=== PATIENT | male | born 1980 | race Hispanic/Latino ===

== ENCOUNTER 2020-12-26 12:07 | Inpatient (IN) | payer SELFPAY ==
[~2020-12-26] VITALS: Ht 188 cm; Wt 98.9 kg
[2020-12-26 14:12] LABS: BASOPHILS # (AUTO) 0.1 (0.0-0.1); BASOPHILS % 0.7 % (0.0-1.0); EOSINOPHILS # (AUTO) 0.4 (0.0-0.4); EOSINOPHILS % 4.5 % (0.0-6.0); HEMATOCRIT 37.1 % (38.2-49.6); LYMPHOCYTES # (AUTO) 1.6 (1.0-3.2); LYMPHOCYTES % 20.1 % (18.0-39.1); MEAN CORPUSCULAR HEMOGLOBIN 21.1 pg (28-32); MEAN CORPUSCULAR HGB CONC 29.6 g/dL (31-35); MEAN CORPUSCULAR VOLUME 71.1 fL (81-99); MONOCYTES # (AUTO) 0.6 (0.2-0.8); MONOCYTES % 7.6 % (4.4-11.3); NEUTROPHILS # (AUTO) 5.4 (2.1-6.9); NEUTROPHILS % 66.9 % (38.7-80.0); PLATELET COUNT 282 x10e3/uL (140-360); RED BLOOD COUNT 5.22 x10e6/uL (4.3-5.7); RED CELL DISTRIBUTION WIDTH 18.6 % (11.7-14.4)
[2020-12-26 14:26] LABS: ALBUMIN 4.2 g/dL (3.5-5.0); ALBUMIN/GLOBULIN RATIO 1.3 (0.8-2.0); ANION GAP 12.7 mmol/L (8-16); CALCIUM 8.8 mg/dL (8.4-10.2); CREATININE, SERUM 1.04 mg/dL (0.72-1.25); POTASSIUM 3.7 mmol/L (3.5-5.1)
[2020-12-26] MEDS ORDERED: MORPHINE SULFATE INJ 4 MG/ML INJ 1ML IV ONE (14:30)
[2020-12-26] MEDS ORDERED: HYDROMORPHONE 1MG/1ML INJ IV STA (14:45)
[2020-12-26] MEDS ORDERED: SODIUM CHLORIDE 0.9% 50ML 50 ML ONE (14:46)
[2020-12-26] MEDS ORDERED: IOPAMIDOL 370 MG/ML 200 ML INFUS..BTL INJ ONE (14:46)
[2020-12-26] MEDS: SODIUM CHLORIDE 0.9% 1000ML 1,000 ML IV SCH (17:43)
[2020-12-26] MEDS: MORPHINE SULFATE INJ 4 MG/ML INJ 1ML IV PRN ×2 (17:44→21:59)
[2020-12-26] MEDS: ONDANSETRON HCL INJ 2MG/ML 2ML 2 MG/ML VIAL IV PRN ×2 (17:44→21:59)
[2020-12-26 20:00] VITALS: BP 145/102
[2020-12-27] VITALS (7 sets, daily range): BP systolic 114–158; BP diastolic 75–112
[2020-12-27] MEDS ORDERED: HALOPERIDOL LACTATE 5 MG/ML VIAL IM PRN (01:00)
[2020-12-27] MEDS: SODIUM CHLORIDE 0.9% 1000ML 1,000 ML IV SCH ×3 (01:30→16:37)
[2020-12-27 05:35] LABS: BASOPHILS # (AUTO) 0.1 (0.0-0.1); EOSINOPHILS # (AUTO) 0.5 (0.0-0.4); EOSINOPHILS % 5.8 % (0.0-6.0); HEMATOCRIT 35.6 % (38.2-49.6); HEMOGLOBIN 10.7 g/dL (14.0-18.0); LYMPHOCYTES # (AUTO) 2.4 (1.0-3.2); LYMPHOCYTES % 29.4 % (18.0-39.1); MEAN CORPUSCULAR HEMOGLOBIN 21.4 pg (28-32); MEAN CORPUSCULAR HGB CONC 30.1 g/dL (31-35); MEAN CORPUSCULAR VOLUME 71.2 fL (81-99); MONOCYTES # (AUTO) 0.6 (0.2-0.8); MONOCYTES % 7.6 % (4.4-11.3); NEUTROPHILS # (AUTO) 4.6 (2.1-6.9); PLATELET COUNT 273 x10e3/uL (140-360)
[2020-12-27 06:02] LABS: ANION GAP 12.7 mmol/L (8-16); CALCIUM 8.2 mg/dL (8.4-10.2); CREATININE, SERUM 1.04 mg/dL (0.72-1.25); POTASSIUM 3.7 mmol/L (3.5-5.1)
[2020-12-27] MEDS ORDERED: BUPIVACAINE HCL 0.5% INJ 30 ML VIAL INJ ONE (06:08)
[2020-12-27] MEDS ORDERED: LIDOCAINE 2% /EPINEPHRINE 20 ML SDV INJ ONE (06:08)
[2020-12-27] MEDS ORDERED: LIDOCAINE JELLY 2% 10ML URO-JET ONE (06:08)
[2020-12-27] MEDS ORDERED: LIDOCAINE HCL 2% JELLY 5 ML TUBE ONE (06:09)
[2020-12-27] MEDS ORDERED: CEFOXITIN 1GM/0.9% NS 50ML 100 ML IV ONE (06:31)
[2020-12-27 06:42] LABS: FERRITIN 10.05 ng/mL (21.81-274.66)
[2020-12-27] MEDS ORDERED: HYDROCODONE/APAP 5MG-325MG TAB PO PRN (07:15)
[2020-12-27] MEDS: DOCUSATE SODIUM 100 MG CAP PO SCH ×2 (08:48→17:05)
[2020-12-27] MEDS ORDERED: KETOROLAC TROMETHAMINE 30 MG/ML VIAL IM PRN (11:15)
[2020-12-27] MEDS ORDERED: PROPOFOL IV EMULSION 10 MG/ML 20 ML VIAL ONE (12:36)
[2020-12-27] MEDS ORDERED: POVIDONE IODINE 0.05% 0.05 % ML PO ONE (12:36)
[2020-12-27] MEDS ORDERED: DEXAMETHASONE SOD PHOS INJ 4 MG/ML VIAL ONE (12:36)
[2020-12-27] MEDS ORDERED: SEVOFLURANE INHAL SOLN 250 ML PEN BTL ONE (12:36)
[2020-12-27] MEDS ORDERED: ONDANSETRON HCL INJ 2MG/ML 2ML 2 MG/ML VIAL ONE (12:36)
[2020-12-27] MEDS ORDERED: ETOMIDATE 2 MG/ML 10 ML INJ IV ONE (12:36)
[2020-12-27] MEDS: IRON SUCROSE 100 MG in SODIUM CHLORIDE 0.9% 100 ML 100 ML IV SCH (14:02)
[2020-12-27] MEDS: HYDROMORPHONE 1MG/1ML INJ IV PRN (17:54)
[2020-12-27] MEDS ORDERED: LIDOCAINE HCL 2% JELLY 5 ML TUBE TOP PRN (20:00)
[2020-12-27] MEDS: HYDROCODONE/APAP 7.5MG-325MG 1 EA TAB PO PRN (20:24)
[2020-12-28] VITALS (7 sets, daily range): BP systolic 110–140; BP diastolic 61–88
[2020-12-28] MEDS: SODIUM CHLORIDE 0.9% 1000ML 1,000 ML IV SCH ×2 (01:10→09:57)
[2020-12-28 05:40] LABS: BASOPHILS % 0.4 % (0.0-1.0); EOSINOPHILS # (AUTO) 0.1 (0.0-0.4); HEMATOCRIT 34.2 % (38.2-49.6); HEMOGLOBIN 10.1 g/dL (14.0-18.0); LYMPHOCYTES # (AUTO) 2.7 (1.0-3.2); LYMPHOCYTES % 25.6 % (18.0-39.1); MEAN CORPUSCULAR HEMOGLOBIN 21.1 pg (28-32); MEAN CORPUSCULAR HGB CONC 29.5 g/dL (31-35); MEAN CORPUSCULAR VOLUME 71.4 fL (81-99); MONOCYTES # (AUTO) 0.8 (0.2-0.8); MONOCYTES % 7.7 % (4.4-11.3); NEUTROPHILS # (AUTO) 6.9 (2.1-6.9); PLATELET COUNT 251 x10e3/uL (140-360); RED BLOOD COUNT 4.79 x10e6/uL (4.3-5.7); RED CELL DISTRIBUTION WIDTH 18.3 % (11.7-14.4)
[2020-12-28 05:59] LABS: ANION GAP 12.5 mmol/L (8-16); CALCIUM 8.1 mg/dL (8.4-10.2); CREATININE, SERUM 0.86 mg/dL (0.72-1.25); POTASSIUM 3.5 mmol/L (3.5-5.1)
[2020-12-28] MEDS: HYDROCODONE/APAP 7.5MG-325MG 1 EA TAB PO PRN (07:39)
[2020-12-28 08:02] LABS: ANISOCYTOSIS SLIGHT; HYPOCHROMASIA SLIGHT; PLATELET ESTIMATE ADEQUATE; PLATELET MORPHOLOGY COMMENT NORMAL; RBC MORPHOLOGY COMMENT NORMAL
[2020-12-28 08:03] LABS: MICROCYTOSIS SLIGHT
[2020-12-28] MEDS: DOCUSATE SODIUM 100 MG CAP PO SCH ×2 (09:54→18:29)
[2020-12-28] MEDS: HYDROMORPHONE 1MG/1ML INJ IV PRN (09:55)
[2020-12-28] MEDS: IRON SUCROSE 100 MG in SODIUM CHLORIDE 0.9% 100 ML 100 ML IV SCH (13:19)
[2020-12-28] MEDS ORDERED: KETOROLAC TROMETHAMINE 30 MG/ML VIAL IV PRN (15:30)
== END 2020-12-28 20:23 | disposition home or self-care (01) | DRG 349 ==
LOC: ER 12:26 → ERHOLD 15:54 → MED/SURG 19:55 → OBSVTOIN 12-28 10:41
PROVIDERS: ADMIT Internal Medicine; ATTEND Internal Medicine
PROC: 065Y4ZC Destruction of Hemorrhoidal Plexus, Percutaneous Endoscopic Approach (ICD-10-PCS; principal; 2020-12-27 07:00)
DX: K64.3 Fourth degree hemorrhoids (principal); Z20.822 Contact with and (suspected) exposure to COVID-19; R03.0 Elevated blood-pressure reading, without diagnosis of hypertension; D53.9 Nutritional anemia, unspecified; D50.0 Iron deficiency anemia secondary to blood loss (chronic)
CPT/HCPCS: 36415; 74177; 80048; 80053; 82607; 82728; 82746; 83036; 83540; 84466; 85025; 99284; G0378; J1100; J1170; J1756; J1885; J2001; J2270; J2405; J7030; Q9967; U0002